=== PATIENT | male | born 1970 | race Caucasian/White ===

== ENCOUNTER 2021-02-17 20:30 | Emergency (ER) | payer OTHER ==
[~2021-02-17] VITALS: Ht 180.3 cm; Wt 112.1 kg
[2021-02-17] MEDS ORDERED: OMEP-110 PO (21:04)
--- NOTE | 2021-02-17 21:07 | NUR ---
[facility] MANAGER: PT. TO ROOM FROM LOBBY AT THIS TIME.
[2021-02-17 23:24] VITALS: BP 133/74
== END 2021-02-17 23:25 | disposition home or self-care (01) ==
LOC: ED 23:16
DX: S93.491A Sprain of other ligament of right ankle, initial encounter (principal); S86.011A Strain of right Achilles tendon, initial encounter; K21.9 Gastro-esophageal reflux disease without esophagitis; M10.9 Gout, unspecified; X50.0XXA Overexertion from strenuous movement or load, initial encounter; Y93.89 Activity, other specified; Y92.89 Other specified places as the place of occurrence of the external cause; Y99.8 Other external cause status
CPT/HCPCS: 29125; 29515; 99283; 99284